=== PATIENT | female | born 1945 | race Caucasian/White ===

== ENCOUNTER 2016-07-05 19:59 | Emergency (ER) | payer OTHER ==
[2016-07-05 20:11] VITALS: O2SAT 94
[2016-07-05] MEDS ORDERED: TDAP ADULT 0.5 ML VIAL (BOOSTRIX) IM ONE (21:02)
--- NOTE | 2016-07-05 21:28 | EDPHY ---
H & P Time Seen by Provider: 07/05/16 21:23 HPI/ROS: CHIEF COMPLAINT: Left index finger laceration. HISTORY OF PRESENT ILLNESS: The patient is a 71-year-old female who presents after cutting her left index finger just prior to arrival while making salad. Mild pain, minimal bleeding. She has full range of motion in that finger and her other fingers are atraumatic. She denies numbness, weakness, or other complaints. ROS: No numbness, weakness, excessive bleeding, syncopal episode, other injury. Past Medical/Surgical History: Bipolar disorder, hypothyroidism, appendectomy, tonsillectomy, right shoulder surgery. Social History: Nonsmoker. Smoking Status: Never smoked Physical Exam: Alert and oriented x3, no acute distress Extremities: Left hand: 2cm laceration to distal phalanx left index finger with active pulsatile bleeding. Neuro: Motor and sensory intact Vascular: Capillary refill brisk distally Constitutional: Initial Vital Signs Temperature (C) 36.6 C 07/05/16 20:07 Heart Rate 67 07/05/16 20:07 Respiratory Rate 18 07/05/16 20:07 Blood Pressure 123/73 H 07/05/16 20:07 O2 Sat (%) 94 07/05/16 20:07 O2 Delivery Mode Room Air Allergies/Adverse Reactions: No Known Allergies Allergy (Unverified 07/05/16 20:06) Home Medications: Medication Instructions Recorded Depakote 07/05/16 Progesterone 07/05/16 Seroquel 25 mg (*) 07/05/16 Synthroid 07/05/16 Medical Decision Making Procedures: Procedure: Laceration repair. The 2cm laceration on the left index finger was anesthetized using lidocaine. The wound was irrigated, draped and explored to its base with a gloved finger. There were no deep structures involved. No foreign body palpable. The wound was repaired with 5-0 Ethilon sutures. The wound repair was simple. - Data Points Medications Given: Discontinued Medications Diphtheria/Tetanus/Acell Pertussis (Boostrix) 0.5 ml IM .ONCE ONE Stop: 07/05/16 21:03 Last Admin: 07/05/16 21:15 Dose: 0.5 ml Departure - Departure Disposition: Home, Routine, Self-Care Clinical Impression: Laceration of left index finger Condition: Good Instructions: Finger Laceration (ED), Care For Your Stitches (ED) Additional Instructions: Keep wound clean with warm, soapy water. Avoid prolonged immersion of stitches in water. Return in 10 days for suture removal. Return to the emergency department for any serious worsening of condition. Referrals: TAYLOR GILL [Primary Care Provider] - As per Instructions Report Scribed for: Snehal Fuchs Report Scribed by: Lei Fuentes Date of Report: 07/05/16 Time of Report: 21:26 Physician Review and Approval Statement: 07/05/16 21:39 Portions of this note were transcribed by a biomedical instrument technician. I personally performed a history, physical exam, medical decision making, and confirmed accuracy of information the transcribed note.
[2016-07-05 22:12] VITALS: BP 147/84; PULSE 64; RESP 15; TEMP 98.2
== END 2016-07-05 22:11 | disposition home or self-care (01) ==
PROC: 0HQGXZZ Repair Left Hand Skin, External Approach (ICD-10-PCS; principal; 2016-07-05)
DX: S61.211A Laceration without foreign body of left index finger without damage to nail, initial encounter (principal); Z23 Encounter for immunization; W26.9XXA Contact with unspecified sharp object(s), initial encounter; Y93.89 Activity, other specified

== ENCOUNTER → 2016-10-09 | Outpatient (CLI) | payer OTHER | LOC: FIMAGING 16:08 | PROVIDERS: ATTEND Orthopaedic Surgery | DX: S46.011A Strain of muscle(s) and tendon(s) of the rotator cuff of right shoulder, initial encounter (principal); S43.431A Superior glenoid labrum lesion of right shoulder, initial encounter ==

== ENCOUNTER → 2016-12-04 | Outpatient (CLI) | payer OTHER | LOC: BMCIMAGING 14:50 | PROVIDERS: ATTEND Nurse Practitioner Women's Health | DX: Z12.31 Encounter for screening mammogram for malignant neoplasm of breast (principal) | CPT/HCPCS: G0202 ==

== ENCOUNTER → 2017-12-07 | Outpatient (CLI) | payer OTHER | LOC: BMCIMAGING 14:30 | PROVIDERS: ATTEND Nurse Practitioner Women's Health | DX: Z12.31 Encounter for screening mammogram for malignant neoplasm of breast (principal) ==

== ENCOUNTER → 2017-12-19 | Outpatient (CLI) | payer OTHER | LOC: FIMAGING 10:40 | PROVIDERS: ATTEND Family Medicine | DX: N28.89 Other specified disorders of kidney and ureter (principal); M51.37 Other intervertebral disc degeneration, lumbosacral region ==

== ENCOUNTER → 2017-12-24 | Outpatient (CLI) | payer OTHER ==
[~2017-12-24] MED LIST: IOPAMIDOL (ISOVUE-300) 100 ML BTL ONE
== END ==
LOC: FIMAGING 08:47
PROVIDERS: ATTEND Family Medicine
DX: R93.422 Abnormal radiologic findings on diagnostic imaging of left kidney (principal); R93.8 Abnormal findings on diagnostic imaging of other specified body structures
CPT/HCPCS: 71260; 74177; Q9967

== ENCOUNTER 2018-01-05 12:48 | Inpatient (IN) | payer OTHER ==
--- NOTE | 2018-01-05 08:01 | GHP ---
[f rep st] PREOP HISTORY AND PHYSICAL PRIMARY CARE PROVIDER: Misael Quinn MD ADMISSION DIAGNOSIS: Left renal mass. HISTORY: This 72-year-old lady who has been noted to have an incidental finding of this a large left renal mass based on abdominal CAT scan and MRI studies that were done recently. I reviewed those films and then went back to 2016, and reviewed the films from [facility] and an unmentioned left renal mass was noted at that time, and see upper pole mass. This was done originally , because she had significant sciatica of left leg pain and discomfort. There was no suggestion of metastasis noted on the radiologic images. She is admitted for open left radical nephrectomy, partial ureterectomy. Discussed the options of robotic versus partial versus laparoscopic versus open. Because of the duration and the size of the mass in this small lady, my impression is that the best approach would be to undergo a left open radical nephrectomy. PAST MEDICAL HISTORY: The sciatica as noted. PRIOR SURGERIES: Appendectomy, shoulder surgery, tonsils. MEDICATIONS: Include Depakote, Seroquel, Synthroid and supplements. ALLERGIES: No known drug allergies. FAMILY HISTORY: Hypertension, kidney disease, diabetes, colon cancer. SOCIAL HISTORY: Moderate alcohol consumption, nonsmoker. REVIEW OF SYSTEMS: Negative cardiac, respiratory, GI and endocrine. PHYSICAL EXAMINATION: VITAL SIGNS: Stable. CHEST: Clear. HEART: Regular rate and rhythm. ABDOMEN: Normal. No organomegaly, rebound or guarding. LOWER EXTREMITIES: Normal. She had a urinalysis in the office that showed no hematuria, and once again, she has had a large left renal mass. It is displacing the tail of the pancreas and butts up against the spleen. I discussed with her the indications, complications, and she has had a request to try to preserve the left adrenal gland, and I have discussed that depending on the intraoperative findings would be to most cases with upper pole renal mass we would take the left adrenal gland at the same time. Further answered questions to the best of my ability. She is admitted to undergo this above procedure. /[id number]/MODL MTDD
[2018-01-05] MEDS ORDERED: THROMBIN (BOVINE) 5,000 UNIT VIAL TP ONE (13:03)
[2018-01-05] MEDS ORDERED: BUPIVACAINE/EPI 0.5% 30 ML SDV ONE (13:03)
[2018-01-05] MEDS ORDERED: ceFAZolin 2 GM/DEXTROSE 100 ML IV ONE (13:03)
[2018-01-05] MEDS ORDERED: SURGIFLO MATRIX KIT WITH THROMBIN 8 ML TP ONE (13:03)
[2018-01-05] MEDS ORDERED: ESTRADIOL 0.05 MG TD SCH (13:03)
[2018-01-05] MEDS ORDERED: LR 1,000 ML IV ONE (13:04)
--- NOTE | 2018-01-05 14:46 | PDANEPAE ---
ANE Past Medical History - Cardiovascular History Hx Hypertension: No Hx Arrhythmias: No Hx Chest Pain: No Hx Coronary Artery / Peripheral Vascular Disease: No Hx CHF / Valvular Disease: No Hx Palpitations: No - Pulmonary History Hx COPD: No Hx Asthma/Reactive Airway Disease: No Hx Recent Upper Respiratory Infection: No Hx Oxygen in Use at Home: No Hx Sleep Apnea: No Sleep Apnea Screening Result - Last Documented: Negative - Neurologic History Hx Cerebrovascular Accident: No Hx Seizures: No Hx Dementia: No - Endocrine History Hx Diabetes: No Endocrine History Comment: hypothyroidism - Renal History Hx Renal Disorders: Yes Renal History Comment: frequency. current kidney mass - Liver History Hx Hepatic Disorders: No - Neurological & Psychiatric Hx Hx Neurological and Psychiatric Disorders: Yes Neurological / Psychiatric History Comment: insomnia. bipolar 2 - Cancer History Hx Cancer: Yes Cancer History Comment: basal cell - Congenital Disorder History Hx Congenital Disorders: No - GI History Hx Gastrointestinal Disorders: Yes Gastrointestinal History Comment: gi issues for awhile probably r/t kidney issues. diarrhea with abx - Other Health History Other Health History: wears reading glasses in am. rash that started a year ago on torso- very itchy unknown cause - Chronic Pain History Chronic Pain: Yes (sciatic pain) - Surgical History Prior Surgeries: right shoulder surgery 05/2017. shoulder surgery at 23 yo. tonsillectomy. appy ANE Review of Systems Review of Systems: - Exercise capacity METS (RN): 5 METS ANE Patient History - Allergies Allergies/Adverse Reactions: Penicillins Allergy (Verified 01/04/18 16:44) had bad diarrhea pollen extracts Allergy (Verified 01/04/18 16:45) - Home Medications Home medications: home medication list seen and reviewed Home Medications: QUEtiapine FUMARATE [Seroquel 25 mg (*)] 25 mg PO HS 07/05/16 [Last Taken ] Estradiol [Vivelle-Dot 0.05MG (*)] 0.05 mg TD TU 12/31/17 [Last Taken 01/04/18] Herbals/Supplements -Info Only 1 ea PO DAILY 12/31/17 [Last Taken 01/05/18 12:00 ] Liothyronine Sodium [Cytomel 5 mcg (*)] 10 mcg PO BID 12/31/17 [Last Taken 01/04] T-4 Troy Thyroid 15mg 1 tab PO DAILY@12 12/31/17 [Last Taken 01/04/18] T-4 Troy Thyroid 15mg 2 tab PO DAILY06 12/31/17 [Last Taken 01/04/18] traMADol HCL [Tramadol HCl ER] 100 mg PO HS 12/31/17 [Last Taken 01/04/18] Coq-10 01/05/18 [Last Taken 01/05/18] Progesterone 01/05/18 [Last Taken 01/04/18] - NPO status NPO Status: no food or drink >8 hours NPO Since - Liquids (Date): 01/05/18 NPO Since - Liquids (Time): 11:00 NPO Since - Solids (Date): 01/04/18 NPO Since - Solids (Time): 19:30 - Anes Hx Anes Hx: no prior problems - Smoking Hx Smoking Status: Never smoked - Family Anes Hx Family Hx Anesthesia Complications: none ANE Labs/Vital Signs - Vital Signs Blood Pressure: 147/81 Heart Rate: 64 Respiratory Rate: 16 O2 Sat (%): 99 Height: 162.56 cm Weight: 48.081 kg ANE Physical Exam - Airway Neck exam: FROM Mallampati Score: Class 2 Mouth exam: normal dental/mouth exam - Pulmonary Pulmonary: no respiratory distress, no rales or rhonchi, clear to auscultation - Cardiovascular Cardiovascular: regular rate and rhythym, no murmur, rub, or gallop - ASA Status ASA Status: II ANE Anesthesia Plan Anesthesia Plan: general endotracheal anesthesia, epidural
[2018-01-05] MEDS ORDERED: MIDAZOLAM 2 MG/2 ML VIAL IVP ONE (14:50)
[2018-01-05] MEDS ORDERED: PROPOFOL 200 MG/20 ML VIAL ONE (15:03)
[2018-01-05] MEDS ORDERED: fentaNYL 100 MCG/2 ML INJ ONE ×2 (15:03→17:22)
[2018-01-05] MEDS ORDERED: ONDANSETRON 4 MG/2 ML VIAL ONE ×2 (15:07→17:28)
[2018-01-05] MEDS ORDERED: DEXAMETHASONE 4 MG/ML VIAL ONE (15:07)
[2018-01-05] MEDS ORDERED: ROCURONIUM 50 MG/5 ML VIAL ONE (15:07)
[2018-01-05] MEDS ORDERED: GLYCOPYRROLATE 0.2 MG/1 ML VIAL ONE (15:51)
[2018-01-05] MEDS ORDERED: PHENYLEPHRINE HCL 100 MCG/ML SYR ONE (15:56)
[2018-01-05] MEDS ORDERED: ePHEDrine SULFATE 25 MG/5 ML SYR ONE (15:56)
[2018-01-05] MEDS ORDERED: NALOXONE HCL 0.4 MG/ML INJ IVP PRN ×2 (15:59→16:41)
[2018-01-05] MEDS ORDERED: ONDANSETRON 4 MG/2 ML VIAL IVP PRN ×3 (15:59→17:03)
[2018-01-05] MEDS ORDERED: HYDROmorph 10MCG/ML&BUP 0.1% in 100ML NS EP SCH (15:59)
[2018-01-05] MEDS ORDERED: diphenhydrAMINE 25 MG CAP PO PRN (15:59)
[2018-01-05] MEDS ORDERED: BUPIVACAINE 0.25% 30 ML SDV ONE (16:06)
[2018-01-05] MEDS ORDERED: HYDROmorphONE/DILAUDID 1 MG/ML INJ IVP PRN (16:41)
[2018-01-05] MEDS ORDERED: DEXAMETHASONE 4 MG/ML VIAL IVP PRN (16:41)
[2018-01-05] MEDS ORDERED: LR 500 ML IV PRN (16:41)
[2018-01-05] MEDS ORDERED: PROMETHAZINE HCL 25 MG/ML INJ IVP PRN (16:41)
[2018-01-05] MEDS ORDERED: SUGAMMADEX SODIUM 200 MG/2 ML VIAL IVP ONE (16:44)
[2018-01-05] MEDS ORDERED: METHYLENE BLUE 0.5% 50 MG/10 ML AMP ONE (16:45)
[2018-01-05] MEDS ORDERED: ZOLPIDEM TARTRATE 5 MG TAB PO PRN (17:03)
[2018-01-05] MEDS ORDERED: ACETAMINOPHEN 325 MG TAB PO PRN (17:03)
--- NOTE | 2018-01-05 17:10 | POSTOPPROG ---
Post Op Note Date of Operation: 01/05/18 Surgeon: Robert López Blueprint Trimmer: Deshaun Anesthesiologist: Anita Anesthesia: Epidural, LMA Pre-op Diagnosis: left renal mass Post-op Diagnosis: same Indication: same Procedure: nephrectomy Findings: dictated Inf/Abcess present in the surg proc area at time of surgery?: No EBL: 50-100 Complications: none, dictated
--- NOTE | 2018-01-05 17:26 | POSTANESTH ---
Post Anesthetic Evaluation Cardiovascular Status: Normal, Stable, Similar to Pre-Op Cond Respiratory Status: Normal, Stable, Similar to Pre-op Cond. Level of Consciousness/Mental Status: Can Participate in Eval, Mildly Sleepy, Arousable Pain Control: Adequate, Prn Tx Ordered Nausea/Vomiting Control: Adequate, Prn Tx Ordered Complications Possibly Related to Anesthesia: None Noted
[2018-01-05] MEDS: fentaNYL 100 MCG/2 ML INJ IVP PRN ×2 (17:27→17:40)
--- NOTE | 2018-01-05 19:34 | GOP ---
[f rep st] OPERATIVE REPORT DATE OF OPERATION: SURGEON: Robert López MD MANAGER DRILLING SURGEON: Jerrod Meade PREOPERATIVE DIAGNOSIS: Left renal mass, solid. POSTOPERATIVE DIAGNOSIS: Left renal mass, solid. PROCEDURE PERFORMED: left radical nephrectomy, partial ureterectomy FINDINGS: renal mass upper pole of kidney with inflammation involving adrenal and adhered to pancreas / gonadal vessel / splenic vein DESCRIPTION OF PROCEDURE: Lady underwent general anesthesia and prepped and draped in normal sterile fashion. After time-out she was draped and had Ioban placed over the abdominal wall, and then she had a left subcostal that extended beyond the midline to the right subcostal for 2 inches and then entered the peritoneal cavity. The liver was normal with no suggestion of mass. The falciform ligament was ligated with 2-0 Vicryl sutures. We mobilized the colon and stomach off and exposed the retroperitoneum. Could identify the left ureter which was clipped twice and transected. That was taken down to just at the iliac vessels. I dissected the kidney up medially along the aorta to where I could identify the renal vein and renal artery. She had a large gonadal vein that was dissected free and was not involved in the dissection. At that point, I was able to do a vascular stapler across the vascular planes. This tumor was exceedingly soft and large. It had a lot of edema and swelling around it and it seemed the edema encompassed the adrenal, so at that point, I kept medial and brought the adrenal gland with the specimen and went above it. I could dissect off the splenic vein and pancreas off the top of the tumor. Once again it had a lot of edema and swelling related to the perinephric reaction. All of this vasculature was managed with the vascular stapler and I was able to bring it out and bring the specimen out intact. There was no violation of the capsule around the tumor and then at that point, inspection revealed no significant bleeding or pooling of blood. The spleen was viable and intact. The bowel had no enterotomy. There was no opening thin veil of the mesenteric peritoneal reflections. I placed Surgicel over the depth of the wound and at that point, replaced the intraabdominal contents so that the large bowel fell into the renal fossa so small bowel would not go retro colonic. I was able to close the peritoneum posterior rectus sheath with a running 0 Vicryl and then at that point, the internal obliques was approximated with an 0 Vicryl and the external obliques and anterior rectus sheath was approximated with 0 Vicryl. Hemostasis was noted and then skin aura were placed. Estimated blood loss 100 mL, complications none and specimen sent for pathology. I will discuss the findings with her as she will be admitted for postoperative care. She does have an epidural, so that will be how her pain will be managed and we will draw labs in the morning and final pathology will be revealed in probably 5 working days. PROCEDURE: Left radical nephrectomy, adrenalectomy and partial ureterectomy. Copy requested to: Dr. [place] /[id number]/MODL MTDD
[2018-01-05] MEDS: D5W 1/2 NS 1,000 ML IV SCH (20:00)
[2018-01-05] MEDS: traMADol 50 MG TAB PO SCH (20:00)
[2018-01-05] MEDS: THYROID PO SCH (21:06)
[2018-01-05] MEDS: LIOTHYRONINE SODIUM 5 MCG TAB PO SCH (21:20)
[2018-01-05] MEDS: QUEtiapine FUMARATE 25 MG TAB PO SCH (22:42)
[2018-01-06] MEDS: D5W 1/2 NS 1,000 ML IV SCH ×2 (04:18→21:04)
[2018-01-06 05:08] LABS: PLATELET COUNT 184 10^3/uL (150-400)
[2018-01-06] MEDS: THYROID PO SCH ×2 (06:33→12:40)
[2018-01-06] MEDS: REGARDING ANTICOAG MISC SCH (09:01)
[2018-01-06] MEDS: DC NARCS MISC SCH (09:01)
[2018-01-06] MEDS: LIOTHYRONINE SODIUM 5 MCG TAB PO SCH ×2 (09:05→21:11)
--- NOTE | 2018-01-06 09:35 | ASMTCMCOM ---
CM Note CM Note Notes: Patient admitted for L open radical nephrectomy with Dr López. She is POD #1 and doing well. No therapies have been ordered. Patient lives independently with her , and I don't anticipate any discharge needs. Case Management available if this changes. Current CM Discharge plan: home independent Date Signed: 01/06/2018 09:34 AM Electronically Signed By:Yoselin Zaidi RN
--- NOTE | 2018-01-06 10:39 | PDMN ---
Medical Necessity Medical necessity: MCG: S870 Nephrectomy, 3 days, S20 Adrenalectomy, partial or complete, 3 days: 72 y/o s/p Left radical nephrectomy, adrenalectomy and partial ureterectomy. Medicare Inpatient Only.
--- NOTE | 2018-01-06 11:43 | PDPAINCON ---
Pain Management Consultation Patient referred by : Rene - Subjective Pain at rest (/10): 2 Pain is: low, well controlled Side effects include: itchiness Activity: out of bed with assistance - Objective Technique: continuous epidural Site: thoracic Continuous infusion: bupivicaine (0.1% with 2 mcg/ml fentanyl) Continuous rate (ml/hr): 5 Bolus (ml): 4 Lockout interval (mins): 15 Catheter site: clean, dry, intact (Dried blood under dressing.) Sensory and motor exam: consistent with block Vital signs: stable - Assessment/Plan Assessment/Plan: pain well-controlled, continue current mgmt (Severe pruritus with hydromorphone/bupiv; switched at 1130 to fentanyl/bupiv.)
--- NOTE | 2018-01-06 13:05 | SOAPPROG ---
SOAP Progress Note Assessment/Plan: Assessment: Renal mass, left Acute POD # 1, path pending, doing well Plan: continue post operative care 01/06/18 13:04 Subjective: doing well, pain control doing well with epidural Objective: Vital Signs Temp Pulse Resp BP Pulse Ox 36.9 C 71 14 123/54 H 93 01/06/18 12:00 01/06/18 12:00 01/06/18 12:00 01/06/18 12:00 01/06/18 12:00 Laboratory Results 01/06/18 04:14 01/06/18 04:14 01/05/18 01/06/18 01/07/18 05:59 05:59 05:59 Intake Total 3040 Output Total 900 700 Balance 2140 -700 Physical Exam - Physical Exam General Appearance: WD/WN, alert Neck: supple Respiratory: No respiratory distress Cardiac/Chest: regular rate, rhythm Abdomen: soft Back: No CVA tenderness Extremities: No calf tenderness Neuro/Psych: alert, oriented x 3 ICD10 Worksheet Patient Problems: Problems Problem Status Onset Renal mass, left Acute - ICD10 Problem Qualifiers (1) Renal mass, left
[2018-01-06] MEDS: NALOXONE HCL 0.4 MG/ML INJ IVP PRN ×3 (17:31→18:07)
[2018-01-06] MEDS: traMADol 50 MG TAB PO SCH (21:10)
[2018-01-06] MEDS: QUEtiapine FUMARATE 25 MG TAB PO SCH (21:10)
[2018-01-07] MEDS: D5W 1/2 NS 1,000 ML IV SCH ×3 (04:36→21:18)
[2018-01-07] MEDS: fentaNYL 200 MCG, BUPIVACAINE 0.5% 20 ML in NS 100 ML EP SCH ×2 (04:36→18:30)
[2018-01-07] MEDS: THYROID PO SCH ×2 (06:24→12:27)
[2018-01-07] MEDS: LIOTHYRONINE SODIUM 5 MCG TAB PO SCH (10:08)
[2018-01-07] MEDS: REGARDING ANTICOAG MISC SCH (10:09)
[2018-01-07] MEDS: DC NARCS MISC SCH (10:09)
--- NOTE | 2018-01-07 10:11 | PDPAINCON ---
Pain Management Consultation - Subjective Pain is: low, well controlled Side effects include: itchiness (Pruritus now mild with bupiv/fent at 4 ml/hr.) Activity: able to ambulate - Objective Technique: continuous epidural Catheter site: clean, dry, intact - Assessment/Plan Assessment/Plan: pain well-controlled, continue current mgmt (Plan to remove epidural tomorrow (it will be three days).)
--- NOTE | 2018-01-07 10:46 | SOAPPROG ---
SOAP Progress Note Assessment/Plan: Assessment: Renal mass, left Acute POD # 2, path pending, doing well Plan: continue post operative care, advance diet 01/07/18 11:33 Subjective: doing ok Objective: Vital Signs Temp Pulse Resp BP Pulse Ox 37.7 C 78 16 147/71 H 95 01/07/18 06:00 01/07/18 06:00 01/07/18 06:00 01/07/18 04:50 01/07/18 06:00 Laboratory Results 01/07/18 04:36 01/07/18 04:36 01/06/18 01/07/18 01/08/18 05:59 05:59 05:59 Intake Total 3040 3856 Output Total 900 2600 1000 Balance 2140 1256 -1000 Physical Exam - Physical Exam General Appearance: alert Neck: normal inspection Respiratory: No respiratory distress Cardiac/Chest: regular rate, rhythm Abdomen: non-tender (mild gas distended yet passing flatus) Back: No CVA tenderness Skin: warm/dry Extremities: No calf tenderness, No Romeo's sign Neuro/Psych: alert, oriented x 3 ICD10 Worksheet Patient Problems: Problems Problem Status Onset Renal mass, left Acute - ICD10 Problem Qualifiers (1) Renal mass, left
[2018-01-07] MEDS ORDERED: LORATADINE PO PRN (13:37)
--- NOTE | 2018-01-07 16:41 | GCON ---
[f rep st] CONSULTATION DATE OF CONSULTATION: 01/07/2018 CHIEF COMPLAINT: Left leg pain. HISTORY OF PRESENT ILLNESS: The patient is a 72-year-old female who had been noted to have an incidental finding of a large left renal mass via lumbar MRI. The patient had been experiencing left gluteal and lateral leg pain, which is intermittent and mostly happens in the mornings. This pain is resolved taking 1 tramadol daily. The patient is still able to maintain her active lifestyle, running approximately 25 miles per week. The patient recently underwent a left open radical nephrectomy with Dr. Kade López. We were asked to follow up with this patient regarding her history of her leg pain. REVIEW OF SYSTEMS: A 10-point review of systems was performed and negative aside from what was mentioned in HPI. PAST MEDICAL HISTORY: Left renal mass. PRIOR SURGERIES: Appendectomy, shoulder surgery, tonsillectomy, left nephrectomy. MEDICATIONS: Depakote, Seroquel, Synthroid, and supplements. ALLERGIES: Patient has no known drug allergies. FAMILY HISTORY: Hypertension, kidney disease, diabetes, and colon cancer. SOCIAL HISTORY: The patient occasionally drinks alcohol. She does not smoke cigarettes. She denies any illicit drug use. LABORATORY RESULTS: White blood cell count is 5.97, hemoglobin 11.3, hematocrit 32.7, platelets 157. Sodium 132, potassium 3.7, BUN is 11, creatinine 1.0, and glucose is 109. DIAGNOSTIC IMAGING: MRI of the lumbar spine performed on December 19, 2017 demonstrated a large left renal mass with mild degenerative lumbar disease. The patient has mild facet hypertrophy at L3-4 with no significant spinal stenosis throughout her lumbar spine. VITAL SIGNS: Blood pressure is 129/73, pulse is 75, respiratory rate is 16, oxygen saturation is 93% on room air, temperature is 36.8 degrees Celsius. PHYSICAL EXAM: HEENT: Head is normocephalic and atraumatic. Pupils are equal , round, and reactive to light. EOMI. Full visual perdomo by confrontation. RESPIRATORY AND CARDIAC: Deferred. ABDOMEN, RECTAL, GENITOURINARY: Deferred. NEUROLOGIC: The patient is awake, alert, and oriented to name, place, location, date, time, and situation. Memory is intact to immediate past and current events. Speech, no aphasia or dysphonia. Cranial nerves 2-12 are grossly intact. Motor: The patient has 5/5 strength in all muscle groups in bilateral upper and lower extremities, to include deltoids, biceps, triceps, brachioradialis, wrist flexion, extensors, architect in training, intrinsic fingers, iliopsoas, quadriceps, hamstring, plantar flexion, dorsiflexion, EHL testing. Sensation is grossly intact to light touch throughout all dermatomal distributions, bilateral lower extremities. The patient was unable to perform a straight leg raise due to abdominal incision. Reflexes, knee jerk, and ankle jerk are 2+/4. Babinski sign is negative. There is no evidence of clonus. ASSESSMENT AND PLAN: The patient is a 72-year-old female who is recently post left nephrectomy. The patient has a history of left radicular symptoms of the lumbar spine and we were asked to consult regarding this pain. Currently, the patient is able to control these symptoms taking 1 tramadol daily, she is able to maintain an active lifestyle of running approximately 25 miles per week. The patient would like to wait to see if the left leg symptoms resolve following the removal of the left renal mass. We feel this is a reasonable request and we are happy to see her in the office on the outpatient basis. The patient can follow up with us in the neurosurgical office in approximately 6 weeks. If her left leg symptoms resolve, she can follow up with us as needed. I have placed our office information in her discharge plan under her chart. We will follow her on the periphery. The patient was seen and examined by Dr. Walker and me today on January 07, 2018 at 12 p.m. Please call Neurosurgery with any questions or concerns. /[id number]/MODL MTDD
[2018-01-07] MEDS: QUEtiapine FUMARATE 25 MG TAB PO SCH (20:30)
[2018-01-07] MEDS: PROGESTERONE PO SCH (20:30)
[2018-01-07] MEDS ORDERED: LIOTHYRONINE SODIUM 5 MCG TAB PO SCH (21:00)
[2018-01-07] MEDS: traMADol 50 MG TAB PO SCH (23:03)
[2018-01-08] MEDS: THYROID PO SCH ×2 (06:11→12:07)
[2018-01-08] MEDS: LIOTHYRONINE SODIUM 5 MCG TAB PO SCH ×2 (06:12→12:08)
[2018-01-08] MEDS: D5W 1/2 NS 1,000 ML IV SCH ×2 (07:17→23:17)
[2018-01-08] MEDS: OXYCODONE/APAP 5/325 TAB PO PRN ×2 (10:41→13:03)
[2018-01-08] MEDS: ONDANSETRON DISINTEGRATING 4 MG TAB PO PRN ×2 (10:43→17:45)
[2018-01-08] MEDS: DC NARCS MISC SCH (11:17)
[2018-01-08] MEDS: REGARDING ANTICOAG MISC SCH (11:17)
--- NOTE | 2018-01-08 13:58 | SOAPPROG ---
SOAP Progress Note Assessment/Plan: Assessment: Renal mass, left Acute POD # 3, path oncocytoma, doing well Plan: continue post operative care, advance diet 01/08/18 13:57 Subjective: pain is terrible Objective: Vital Signs Temp Pulse Resp BP Pulse Ox 36.9 C 68 16 164/90 H 96 01/08/18 12:03 01/08/18 12:03 01/08/18 12:03 01/08/18 12:03 01/08/18 12:03 Laboratory Results 01/07/18 04:36 01/07/18 04:36 01/07/18 01/08/18 01/09/18 05:59 05:59 05:59 Intake Total 3856 1550 1500 Output Total 2600 4150 Balance 1256 -2600 1500 Physical Exam - Physical Exam General Appearance: alert Neck: supple Respiratory: No respiratory distress Cardiac/Chest: regular rate, rhythm Abdomen: other (incisional pain), No rebound Rectal: normal exam Back: No CVA tenderness Skin: warm/dry Neuro/Psych: alert, oriented x 3 ICD10 Worksheet Patient Problems: Problems Problem Status Onset Renal mass, left Acute - ICD10 Problem Qualifiers (1) Renal mass, left
--- NOTE | 2018-01-08 14:51 | ASMTCMCOM ---
CM Note CM Note Notes: Pt continues to progress and should be ready for DC in next few days with no DC needs. Date Signed: 01/08/2018 02:50 PM Electronically Signed By:Kristin Walker LCSW
[2018-01-08] MEDS: HYDROmorphONE/DILAUDID 2 MG TAB PO PRN (14:57)
[2018-01-08] MEDS ORDERED: BISACODYL 10 MG SUPP PR PRN (17:09)
[2018-01-08] MEDS ORDERED: LACTULOSE 20 GM/30 ML UDCUP PO PRN (17:09)
[2018-01-08] MEDS ORDERED: POLYETHYLENE GLYCOL 3350 17 GM PKT PO PRN (17:09)
[2018-01-08] MEDS ORDERED: MAGNESIUM HYDROXIDE 30 ML UDCUP PO PRN (17:09)
[2018-01-08] MEDS ORDERED: NALOXONE HCL 0.4 MG/ML INJ IVP PRN (17:10)
[2018-01-08] MEDS: HYDROmorphONE/DILAUDID 6 MG/30 ML PCA IV PRN (17:28)
[2018-01-08] MEDS: SENNOSIDES/DOCUSATE SODIUM TAB PO SCH (20:39)
[2018-01-08] MEDS: QUEtiapine FUMARATE 25 MG TAB PO SCH (20:39)
[2018-01-08] MEDS: PROGESTERONE PO SCH (20:39)
[2018-01-08] MEDS: traMADol 50 MG TAB PO SCH (23:21)
[2018-01-09] MEDS: THYROID PO SCH ×2 (05:43→14:27)
[2018-01-09] MEDS: LIOTHYRONINE SODIUM 5 MCG TAB PO SCH ×2 (06:21→14:28)
[2018-01-09] MEDS: D5W 1/2 NS 1,000 ML IV SCH ×2 (06:21→14:27)
--- NOTE | 2018-01-09 09:49 | SOAPPROG ---
SOAP Progress Note Assessment/Plan: Assessment: Renal mass, left Acute POD # 4, path oncocytoma, doing well Plan: continue post operative care, advance diet, transition from IV narcotics to PO pain medication 01/09/18 09:46 Subjective: doing much better on OFFICIAL GREETER and willing to transition to PO meds Objective: Vital Signs Temp Pulse Resp BP Pulse Ox 36.7 C 66 14 165/81 H 93 01/09/18 08:02 01/09/18 08:02 01/09/18 08:02 01/09/18 08:02 01/09/18 08:02 Laboratory Results 01/07/18 04:36 01/07/18 04:36 01/08/18 01/09/18 01/10/18 05:59 05:59 05:59 Intake Total 1550 4875 Output Total 4150 3050 Balance -2600 1825 Physical Exam - Physical Exam General Appearance: alert Neck: supple Respiratory: No respiratory distress Cardiac/Chest: regular rate, rhythm Abdomen: soft, other (dressing removed and tape burn noted, discussed dressing with RN, incision ok, mild tympanitic yet no pain) Back: No CVA tenderness Skin: warm/dry Extremities: No calf tenderness, No Romeo's sign Neuro/Psych: alert, oriented x 3 ICD10 Worksheet Patient Problems: Problems Problem Status Onset Renal mass, left Acute - ICD10 Problem Qualifiers (1) Renal mass, left
[2018-01-09] MEDS: HYDROmorphONE/DILAUDID 6 MG/30 ML PCA IV PRN ×2 (10:32→10:40)
[2018-01-09] MEDS: SENNOSIDES/DOCUSATE SODIUM TAB PO SCH ×2 (10:40→22:21)
[2018-01-09] MEDS: DC NARCS MISC SCH (10:54)
[2018-01-09] MEDS: REGARDING ANTICOAG MISC SCH (10:54)
[2018-01-09] MEDS: HYDROmorphONE/DILAUDID 2 MG TAB PO PRN ×2 (15:00→19:54)
[2018-01-09] MEDS: QUEtiapine FUMARATE 25 MG TAB PO SCH (22:21)
[2018-01-09] MEDS: traMADol 50 MG TAB PO SCH (22:23)
[2018-01-09] MEDS: PROGESTERONE PO SCH (22:36)
[2018-01-10] MEDS: D5W 1/2 NS 1,000 ML IV SCH ×2 (00:54→08:43)
[2018-01-10] MEDS: LIOTHYRONINE SODIUM 5 MCG TAB PO SCH ×2 (06:11→12:34)
[2018-01-10] MEDS: HYDROmorphONE/DILAUDID 2 MG TAB PO PRN ×3 (06:12→17:53)
[2018-01-10] MEDS: THYROID PO SCH ×2 (06:16→12:31)
[2018-01-10] MEDS: HYDROmorphONE/DILAUDID 6 MG/30 ML PCA IV PRN (08:40)
[2018-01-10] MEDS: SENNOSIDES/DOCUSATE SODIUM TAB PO SCH ×2 (08:46→20:44)
--- NOTE | 2018-01-10 09:05 | SOAPPROG ---
SOAP Progress Note Assessment/Plan: Assessment: Renal mass, left Acute POD # 5, path oncocytoma, doing well Plan: continue post operative care, advance diet, transition from IV narcotics to PO pain medication, DC planning for Thursday if pain controlled by PO 01/10/18 09:46 Subjective: better yet pain this AM severe, ambulating, flatus and tolerating PO Objective: Vital Signs Temp Pulse Resp BP Pulse Ox 36.4 C 78 20 144/78 H 93 01/10/18 07:52 01/10/18 07:52 01/10/18 07:52 01/10/18 07:52 01/10/18 07:52 Laboratory Results 01/07/18 04:36 01/07/18 04:36 01/09/18 01/10/18 01/11/18 05:59 05:59 05:59 Intake Total 4875 2678 400 Output Total 3050 1450 1050 Balance 1825 1228 -650 Physical Exam - Physical Exam General Appearance: alert Neck: normal inspection Respiratory: No respiratory distress Cardiac/Chest: regular rate, rhythm Abdomen: soft, other (incision ok) Back: No CVA tenderness Extremities: No calf tenderness, No Romeo's sign Neuro/Psych: alert, oriented x 3 ICD10 Worksheet Patient Problems: Problems Problem Status Onset Renal mass, left Acute - ICD10 Problem Qualifiers (1) Renal mass, left
[2018-01-10] MEDS: QUEtiapine FUMARATE 25 MG TAB PO SCH (20:44)
[2018-01-10] MEDS: PROGESTERONE PO SCH (20:47)
[2018-01-10] MEDS ORDERED: TRAMADOL 100 MG PO SCH (21:00)
[2018-01-11] MEDS: HYDROmorphONE/DILAUDID 2 MG TAB PO PRN ×4 (01:17→16:19)
[2018-01-11] MEDS: THYROID PO SCH ×2 (06:20→12:12)
[2018-01-11] MEDS: LIOTHYRONINE SODIUM 5 MCG TAB PO SCH ×2 (07:45→12:12)
[2018-01-11] MEDS: SENNOSIDES/DOCUSATE SODIUM TAB PO SCH (07:46)
--- NOTE | 2018-01-11 10:37 | SOAPPROG ---
SOAP Progress Note Assessment/Plan: Assessment: Renal mass, left Acute POD # 6, path oncocytoma, doing well Plan: continue post operative care, advance diet, transition from IV narcotics to PO pain medication, DC planning for Thursday if pain controlled by PO 01/11/18 10:36 Subjective: anxiety for pain Objective: Vital Signs Temp Pulse Resp BP Pulse Ox 36.8 C 85 16 152/85 H 92 01/11/18 08:00 01/11/18 08:00 01/11/18 08:00 01/11/18 08:00 01/11/18 08:00 Laboratory Results 01/07/18 04:36 01/07/18 04:36 01/10/18 01/11/18 01/12/18 05:59 05:59 05:59 Intake Total 2678 1418 Output Total 1450 3900 400 Balance 1228 -2832 -400 Physical Exam - Physical Exam General Appearance: alert Neck: supple Respiratory: No respiratory distress Cardiac/Chest: No edema Abdomen: soft Back: No CVA tenderness Skin: normal color, warm/dry Extremities: No calf tenderness, No Romeo's sign Neuro/Psych: alert, oriented x 3 ICD10 Worksheet Patient Problems: Problems Problem Status Onset Renal mass, left Acute - ICD10 Problem Qualifiers (1) Renal mass, left
[2018-01-11 16:27] VITALS: BP 137/83
--- NOTE | 2018-01-11 17:29 | GDS ---
[f rep st] DISCHARGE SUMMARY ADMISSION DIAGNOSIS: Left renal mass. DISCHARGE DIAGNOSIS: Left renal mass. PROCEDURE: Left radical nephrectomy, partial ureterectomy. HOSPITAL COURSE: Lady was an a.m. admission, had the above procedure performed. Has had epidural fo r 3 days and then postoperative pain at that point was somewhat uncontrolled, and then, she was on PC A, and now, she converted to the Dilaudid. She is doing quite well. Her final pathology revealed an oncocytoma and she will follow up with me on Thursday for staple removal. /[id number]/MODL
== END 2018-01-11 17:46 | disposition home or self-care (01) | DRG 658 ==
LOC: F3N 12:48 → F1N 18:17
PROVIDERS: ADMIT Specialist; ATTEND Specialist
DX: D30.02 Benign neoplasm of left kidney (principal); E03.9 Hypothyroidism, unspecified; G89.18 Other acute postprocedural pain
CPT/HCPCS: J0690; J1100; J1170; J1200; J2250; J2310; J2370; J2405; J2704; J3010; Q9968

== ENCOUNTER → 2018-12-08 | Outpatient (CLI) | payer OTHER | LOC: BMCIMAGING 13:26 ==